=== PATIENT | male | born 1955 | race Caucasian/White ===

== ENCOUNTER 2016-08-14 03:06 | Emergency (ER) | payer OTHER ==
[~2016-08-14 03:06] MED LIST: HYDR-2768 PO
[2016-08-14 03:08] VITALS: BP 153/88; PULSE 78; RESP 16; TEMP 97.6; O2SAT 98
[2016-08-14] MEDS ORDERED: SODIUM CHLORIDE 0.9% FLUSH 10 ML FLUSH IVF PRN (04:30)
[2016-08-14] MEDS ORDERED: ATOR10TA15 PO (04:31)
[2016-08-14 04:43] LABS: AUTOMATED NEUTROPHIL # 3.1 TH/MM3 (1.8-7.7); BASOPHIL # 0.1 TH/MM3 (0-0.2); EOSINOPHIL # 0.3 TH/MM3 (0-0.4); EOSINOPHIL % 3.8 % (0.0-4.0); HEMATOCRIT 41.7 % (39.0-51.0); HEMO FLAGS DIFF FINAL; LYMPH % 43.6 % (9.0-44.0); LYMPHOCYTE # 3.3 TH/MM3 (1.0-4.8); MEAN CORPUSCULAR HEMOGLOBIN 30.9 PG (27.0-34.0); MEAN CORPUSCULAR HGB CONC 34.3 % (32.0-36.0); MONO % 10.2 % (0.0-8.0); NEUT % 41.4 % (16.0-70.0); PLATELET COUNT 123 TH/MM3 (150-450); RED BLOOD COUNT 4.63 MIL/MM3 (4.50-5.90); RED CELL DISTRIBUTION WIDTH 13.3 % (11.6-17.2); WHITE BLOOD COUNT 7.5 TH/MM3 (4.0-11.0)
--- NOTE | 2016-08-14 04:51 | PD ---
HPI Chief Complaint: Respiratory Symptoms Time Seen by Provider: 04:23 Travel History International Travel<30 days: No Contact w/Intl Traveler<30days: No Traveled to known affect area: No History of Present Illness HPI 61 y/o male presents with shortness of breath where he feels like he cant get a deep breath in. He denies other complaints. He denies recurrent history of this. duration couple hours. He denies prior cardiac history. denies taking an aspirin today. He states he could not sleep and wanted to get checked out. PFSH Past Medical History Cancer: No Cardiovascular Problems: No High Cholesterol: Yes Diabetes: No Diminished Hearing: No Endocrine: No Genitourinary: No Hepatitis: No Hiatal Hernia: No Hypertension: Yes Immune Disorder: No Musculoskeletal: No Neurologic: No Psychiatric: No Reproductive: No Respiratory: No Thyroid Disease: No Past Surgical History Abdominal Surgery: Yes (LEFT ING. HERNIA REP.) AICD: No Genitourinary Surgery: Yes (VASECTOMY) Joint Replacement: No Pacemaker: No Other Surgery: Yes (widened throat to help with sleep apnea) Social History Alcohol Use: Yes (5 beers/daily) Tobacco Use: No Substance Use: No Allergies-Medications (Allergen,Severity, Reaction): Coded Allergies: No Known Allergies (Unverified , 08/14/16) Reported Meds & Prescriptions Reported Meds & Active Scripts Active Reported Atorvastatin (Atorvastatin Calcium) 10 Mg Tab 10 Mg PO HS Hctz (Hydrochlorothiazide) 25 Mg Tab 25 Mg PO DAILY Review of Systems Except as stated in HPI: all other systems reviewed are Neg Physical Exam Narrative GENERAL: Well-nourished, well-developed patient. SKIN: Warm and dry. HEAD: Normocephalic and atraumatic. EYES: No injection or drainage. ENT: No nasal drainage noted. NECK: Supple, trachea midline. CARDIOVASCULAR: Regular rate and rhythm RESPIRATORY: Breath sounds equal bilaterally. No accessory muscle use. GASTROINTESTINAL: Abdomen soft, non-tender, nondistended. EXTREMITIES: No edema. NEUROLOGICAL: Awake and alert. Motor and sensory grossly within normal limits. Normal speech. Data Data Last Documented VS Vital Signs Date Time Temp Pulse Resp B/P Pulse Ox O2 Delivery O2 Flow Rate FiO2 08/14/16 04:53 97.6 68 18 146/86 97 Room Air Orders Complete Blood Count With Diff (08/14/16 04:29) Comprehensive Metabolic Panel (08/14/16 04:29) B-Type Natriuretic Peptide (08/14/16 04:29) D-Dimer (08/14/16 04:29) Act Partial Throm Time (Ptt) (08/14/16 04:29) Prothrombin Time / Inr (Pt) (08/14/16 04:29) Magnesium (Mg) (08/14/16 04:29) Ckmb (Isoenzyme) Profile (08/14/16 04:29) Troponin I (08/14/16 04:29) Iv Access Insert/Monitor (08/14/16 04:29) Electrocardiogram (08/14/16 04:29) Ecg Monitoring (08/14/16 04:29) Oximetry (08/14/16 04:29) Chest, Single Ap (08/14/16 04:29) Sodium Chloride 0.9% Flush (Ns Flush) (08/14/16 04:30) CKMB (08/14/16 04:35) CKMB% (08/14/16 04:35) Aspirin (Aspirin) (08/14/16 06:00) Labs Laboratory Tests Test 08/14/16 04:35 White Blood Count 7.5 TH/MM3 Red Blood Count 4.63 MIL/MM3 Hemoglobin 14.3 GM/DL Hematocrit 41.7 % Mean Corpuscular Volume 90.0 FL Mean Corpuscular Hemoglobin 30.9 PG Mean Corpuscular Hemoglobin 34.3 % Concent Red Cell Distribution Width 13.3 % Platelet Count 123 TH/MM3 Mean Platelet Volume 8.9 FL Neutrophils (%) (Auto) 41.4 % Lymphocytes (%) (Auto) 43.6 % Monocytes (%) (Auto) 10.2 % Eosinophils (%) (Auto) 3.8 % Basophils (%) (Auto) 1.0 % Neutrophils # (Auto) 3.1 TH/MM3 Lymphocytes # (Auto) 3.3 TH/MM3 Monocytes # (Auto) 0.8 TH/MM3 Eosinophils # (Auto) 0.3 TH/MM3 Basophils # (Auto) 0.1 TH/MM3 CBC Comment DIFF FINAL Differential Comment Prothrombin Time 10.2 SEC Prothromb Time International 0.9 RATIO Ratio Activated Partial 25.7 SEC Thromboplast Time D-Dimer Quantitative (PE/DVT) 0.37 MG/L FEU Sodium Level 137 MEQ/L Potassium Level 3.3 MEQ/L Chloride Level 100 MEQ/L Carbon Dioxide Level 28.0 MEQ/L Anion Gap 9 MEQ/L Blood Urea Nitrogen 13 MG/DL Creatinine 0.92 MG/DL Estimat Glomerular Filtration 83 ML/MIN Rate Random Glucose 86 MG/DL Calcium Level 8.8 MG/DL Magnesium Level 2.2 MG/DL Total Bilirubin 1.0 MG/DL Aspartate Amino Transf 22 U/L (AST/SGOT) Alanine Aminotransferase 22 U/L (ALT/SGPT) Alkaline Phosphatase 85 U/L Total Creatine Kinase 181 U/L Creatine Kinase MB 2.5 NG/ML Troponin I LESS THAN 0.02 NG/ML B-Type Natriuretic Peptide 6 PG/ML Total Protein 8.1 GM/DL Albumin 3.8 GM/DL [facility] Medical Decision Making Medical Screen Exam Complete: Yes Emergency Medical Condition: Yes Medical Record Reviewed: Yes (past history confirm) Interpretation(s) EKG shows NSR, no ST elevation or depression, and no arrhythmias. No significant T-wave inversions. CBC & BMP Diagram 08/14/16 04:35 Last 24 hours Impressions Chest X-Ray 08/14/16 0429 Signed Impressions: Service Date/Time: Sunday, August 14, 2016 04:25 - CONCLUSION: No acute disease. Fredis Camarena MD Differential Diagnosis PE, cardiac, anemia, renal failure, pneumonia Narrative Course Will check blood work, chest x-ray, EKG and reevaluate ed workup no acute, offered administrative coordinator observation the patient is preferring to go home. Patient denies any new complaints and states that they are feeling better. Patient happy with care, all questions answered. Patient knows that follow up is incumbent on them and to return to the emergency room immediately if new or worsening symptoms develop. Patient given strict return precautions, vitals reviewed and are normal, agrees to further workup as an outpatient. Diagnosis Primary Impression: Shortness of breath Patient Instructions: General Instructions Additional Instructions: return as needed, follow with primary tuesday Med/Other Pt SpecificInfo: No Change to Meds Disposition: DISCHARGE HOME Condition: Stable Kendal Mcdonald MD Aug 14, 2016 04:51
[2016-08-14 04:52] VITALS: RESP 18; O2SAT 96
[2016-08-14 04:53] VITALS: BP 146/86; PULSE 68; RESP 18; TEMP 97.6; O2SAT 97
--- NOTE | 2016-08-14 04:57 | RADRPT ---
EXAM DATE/TIME: 08/14/2016 04:25 [place] COMPARISON: No previous studies available for comparison. INDICATIONS : Shortness of breath. MEDICAL HISTORY : None. SURGICAL HISTORY : None. ENCOUNTER: Initial ACUITY: 1 day PAIN SCORE: 0/10 LOCATION: Bilateral chest FINDINGS: A single view of the chest demonstrates the lungs to be symmetrically aerated without evidence of mas s, infiltrate or effusion. The cardiomediastinal contours are unremarkable. Osseous structures are intact. CONCLUSION: No acute disease. Fredis Camarena MD on August 14, 2016 at 4:55 Board Certified Radiologist. This report was verified electronically.
[2016-08-14 05:12] LABS: APTT (PATIENT) 25.7 SEC (24.3-30.1); INTERNATIONAL NORMALIZED RATIO 0.9 RATIO; PROTHROMBIN TIME - PATIENT 10.2 SEC (9.8-11.6)
[2016-08-14 05:22] LABS: ALT (GPT) 22 U/L (12-78); ANION GAP 9 MEQ/L (5-15); AST (GOT) 22 U/L (15-37); BLOOD UREA NITROGEN 13 MG/DL (7-18); CHLORIDE 100 MEQ/L (98-107); GLOMERULAR FILTRATION RATE 83 ML/MIN (>89); MAGNESIUM 2.2 MG/DL (1.5-2.5); POTASSIUM 3.3 MEQ/L (3.5-5.1); SODIUM (NA) 137 MEQ/L (136-145)
[2016-08-14 05:26] LABS: ALKALINE PHOSPHATASE 85 U/L (45-117); CREATINE KINASE 181 U/L (39-308)
[2016-08-14 05:37] LABS: CKMB 2.5 NG/ML (0.5-3.6)
[2016-08-14] MEDS ORDERED: ASPIRIN 325 MG TAB PO ONE (06:00)
[2016-08-14 06:26] VITALS: BP 157/94; PULSE 68; RESP 18; O2SAT 99
--- NOTE | 2016-08-15 09:53 | EKG ---
Date Performed: 08/14/2016 Time Performed: 04:33:30 PTAGE: 61 years EKG: Sinus rhythm NORMAL ECG PREVIOUS TRACING : 09/08/2012 10.02 DOCTOR: Garret Yanes Interpretating Date/Time 08/15/2016 09:43:24
== END 2016-08-14 06:36 | disposition home or self-care (01) ==
LOC: NEPC 03:06
DX: R06.02 Shortness of breath (principal); E78.00 Pure hypercholesterolemia, unspecified; I10 Essential (primary) hypertension
CPT/HCPCS: 71010; 80053; 82550; 82552; 83735; 83880; 84484; 85025; 85379; 85610; 85730; 93005